=== PATIENT | female | born 1970 | race Caucasian/White ===

== ENCOUNTER 2025-07-08 06:10 | Day surgery (SDC) | payer BC, SELFPAY ==
[2025-07-06 15:39] VITALS: BMI 20.5
[2025-07-08 06:44] VITALS: BP 124/80; PULSE 91; RESP 16; TEMP 36.3; O2SAT 100; BMI 20.5
[2025-07-08] MEDS: LACTATED RINGERS 1000ML 1,000 ML 50 ML IV (07:00)
--- NOTE | 2025-07-08 07:08 | P.PNANES_ITS ---
[facility] Disclaimer: The information contained in this section may have been updated after the patient was seen, as this information can be updated by other users. Medical History Mitral valvular prolapse syndrome Surgical History [place] teeth removed Family History Other No significant family history Social History (Updated 07/08/25 @ 06:55 by Ashely Alvarez RN) Smoking Status: Never smoker alcohol intake: never substance use type: denies use current occupational status: employed Travel in the last 8 weeks?: None [facility] Anesthesia Checklist Patient Identification Patient Identification: Arm Band Structural Data Admitted From: Home Planned Operative Procedure/s: Colonoscopy Consent for Planned Operative Procedure(s) Verified: Yes Verified Documents: Surgical Consent and History and Physical NPO Status Verified Time NPO: 01:30 (finished prep) Additional verifications Anesthesia Reactions: No Airway Assessment Mallampati Score:: Class II C-Spine Mobility Assessed: Yes TMJ Mobility Assessed: Yes Dentition: Good Dentition Neurological Assessment Level of Consciousness: Awake, Alert and Appropriate Anesthesia Plan Anesthesia Risk discussed: Yes Anesthesia Plan: Verified ASA Class: II Anesthesia Type: Epidural
--- NOTE | 2025-07-08 07:20 | P.HP_ITS ---
History of Present Illness *Admission Date: 07/08/25 *History of present illness: Mrs. Keenan is a 55-year-old female who is here for diagnostic colonoscopy. The patient has a lumbar radiculopathy that improved with physical therapy. In mid May, she open her drawer and thought she might of her back and then began having pain in the right flank. She developed significant constipation relieved with Ex-Lax. She has right flank and right upper quadrant abdominal pain. She reports no rectal bleeding or family history of colon cancer. Her CAT scan of the abdomen and pelvis on 06/15/2025 was essentially normal. She has never had a colonoscopy. The examination is deemed medically necessary for diagnostic colonoscopy. The patient has been seen, interviewed and examined prior to the procedure by both myself and the anesthesia provider. [facility] Disclaimer: The information contained in this section may have been updated after the patient was seen, as this information can be updated by other users. Medical History (Updated 07/08/25 @ 07:23 by Ciro Liang II, MD) Mitral valvular prolapse syndrome Surgical History [place] teeth removed Family History Other No significant family history Social History (Updated 07/08/25 @ 07:09 by Hernando Ulrich CRNA) Smoking Status: Never smoker alcohol intake: never substance use type: denies use current occupational status: employed Travel in the last 8 weeks?: None Have you lived/traveled outside [place] in past 30 days?: No Contact w/someone who lives/traveled outside US past 30 days?: No Exposure to someone with infectious disease in past 14 days?: No Do you have a fever (greater than 100.4 F or 38 C)?: No Have you tested positive for COVID-19?: No Exposed to someone with COVID-19 in past 14 days?: No Do you have a sore throat?: No Do you have a cough?: No Do you have any weakness?: No Are you experiencing any nausea/vomitting?: No Do you have any diarrhea?: No Are you experiencing any unusual bleeding?: No Do you have any muscle aches/pain?: No Do you have any abdominal pain?: No Are you experiencing loss of taste or smell?: No Review of Systems Review of Systems Review of systems (narrative): Negative *Cardiovascular Comments: Negative *Gastrointestinal Comments: Negative *Genitourinary Comments: Negative *Musculoskeletal Comments: Negative *Neurologic Comments: Negative Meds Home Medications and Allergies Home Medications ?Medication ?Instructions ?Recorded ?Confirmed ?Type No Known Home Medications 07/06/2506/23 History New Prescriptions to Start Prescriptions: Allergies Allergy/AdvReac Type Severity Reaction Status Date / Time No Known Allergies Allergy Verified 07/06/25 15:38 Exam Data for Last 24 hours Vital signs and Labs for Last 24 Hours: Temp Pulse Resp BP Pulse Ox O2 Del Method 97.3 F L 91 H 16 124/80 100 Room Air 07/08/25 06:44 07/08/25 06:44 07/08/25 06:44 07/08/25 06:44 07/08/25 06:44 07/08/25 06:44 I & O for Last 24 hours: Intake & Output 07/05/25 07/06/25 07/07/25 07/08/25 23:59 23:59 23:59 23:59 Weight 120 lb 120 lb *Routine HEENT Exam Head: Present normocephalic Eye: Present EOMI and PERRL ENT: Present mucous membranes moist *Routine Neck Exam Neck: Present supple *Routine Respiratory Exam Respiratory: Present CTA bilaterally *Routine Cardiovascular Exam Cardiovascular: Present RRR *Routine Abdominal Exam Abdominal: Present soft and normoactive bowel sounds; Absent tenderness *Routine Rectal Exam Rectal:: deferred *Routine Genitalia Exam Genitalia:: deferred *Routine Extremities Exam Extremities: Absent cyanosis, clubbing or edema *Routine Skin Exam Skin: Present warm; Absent rash *Routine Neurological Exam Neurological: Present alert and oriented X3 Assessment and Plan *Assessment and plan (1) Right upper quadrant abdominal pain: Status: Acute Category: Medical Code(s): R10.11 - Right upper quadrant pain (2) Right flank pain: Status: Acute Category: Medical Code(s): R10.A1 - Flank pain, right side (3) Change in bowel habits: Status: Acute Category: Medical Code(s): R19.4 - Change in bowel habit (4) Constipation: Status: Acute Category: Medical Code(s): K59.00 - Constipation, unspecified Plan A/P: 1. Change in bowel habits with constipation, right upper quadrant abdominal pain and right flank pain is the preprocedural diagnosis. The patient will be anesthetized/sedated using MAC sedation. The patient has been seen and examined. Cardiac and lung assessment prior to the examination is stable. Proceed with planned diagnostic colonoscopy.
--- NOTE | 2025-07-08 07:24 | P.PCN_ITS ---
[facility] Procedure Note Date: 07/08/25 Time: 07:56 Procedure Note:: Colonoscopy Procedure Report: Colonoscopy with cold snare polypectomy Endoscopist: Ciro Liang II, MD Referring physician: Bernard Boone MD Date of Procedure: July 08, 2025 Equipment: Olympus [id number] adult colonoscope Sedation: MAC sedation Indication: Mrs. Keenan is a 55-year-old female who is here for diagnostic colonoscopy. The patient has a known lumbar radiculopathy that improved with physical therapy. In mid May, she opened a drawer and thought she might have pulled something in her back and then began having pain in the right flank. She developed significant constipation relieved with Ex-Lax. She was later switched to MiraLAX and has improved. The pain lasted for a couple of weeks and she was on a muscle relaxer as well. Now, she reports no pain but does feel a stretching sensation in the right flank. She reports no rectal bleeding, abdominal pain or family history of colon cancer. Her CAT scan of the abdomen and pelvis on 06/15/2025 was essentially normal. She has never had a co lonoscopy. The examination is deemed medically necessary for diagnostic colonoscopy. Procedure: Prior to the procedure, a history and physical exam was performed, and patient's medications and allergies were reviewed. The risks, benefits and alternatives of the sedation and procedure were discussed with the patient. All questions were answered and informed consent was obtained. The patient was brought to the procedure room. Patient identification and proposed procedure were verified by the physician and the nurse. The patient was placed in a left lateral decubitus position and the scope was passed under direct vision. Throughout the procedure, the patient's blood pressure, pulse, and oxygen saturations were monitored continuously. The colonoscopy was accomplished without difficulty. The patient tolerated the procedure well. Findings: On digital rectal examination there was normal rectal tone. There were no external hemorrhoids. The colonoscope was introduced through the anal canal to the rectum and advanced to the cecum. The ileocecal valve and appendiceal orifice were identified. The scope was advanced a short distance into the ileum which appeared grossly normal. The scope was then withdrawn into the colon. There were 2 diminutive polyps (ascending x 2 (4 and 4 mm)) which were both removed via cold snare polypectomy. There was some angulation at the hepatic fl exure. The remainder of the cecum, ascending, transverse, descending, sigmoid and rectum were normal. Upon retroflexion within the rectum there were grade 1 internal hemorrhoids. The preparation was excellent throughout with [place] Preparation Score of 9. The cecal time was 12 minutes. Impression: 1. Diminutive ascending colon polyps x 2 2. Grade 1 internal hemorrhoids Plan: I will follow-up the polyp histology and recommend repeat screening/surveillance colonoscopy again in 7 to 10 years. 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 Hepatic flexure syndrome is a term used to describe bloating, muscle spasms of the colon and pain on the right side (right upper quadrant or right flank) and is thought to be caused by trapped gas and stool at the hepatic flexure/curvature of the colon which is in the right upper colon.
[2025-07-08 07:58] VITALS: BP 106/67; PULSE 83; RESP 16; TEMP 36.1; O2SAT 100
[2025-07-08 08:08] VITALS: BP 93/61; PULSE 83; RESP 18; TEMP 36.1; O2SAT 99
[2025-07-08 08:18] VITALS: BP 113/71; PULSE 80; RESP 18; TEMP 36.1; O2SAT 100
[2025-07-08 08:28] VITALS: BP 104/74; PULSE 78; RESP 18; TEMP 36.1; O2SAT 99
== END 2025-07-08 08:52 | disposition home or self-care (01) ==
PROVIDERS: PCP Internal Medicine; Visit Provider Internal Medicine Gastroenterology
PROC: 0DJD8ZZ Inspection of Lower Intestinal Tract, Via Natural or Artificial Opening Endoscopic (ICD-10-PCS; CPT 45378; principal; 2025-07-08 07:30)
DX: D12.2 Benign neoplasm of ascending colon (principal); K64.0 First degree hemorrhoids; M54.16 Radiculopathy, lumbar region; K59.00 Constipation, unspecified
CPT/HCPCS: 45385; J2003; J2704; J7120